=== PATIENT | male | born 1995 | race Two or more races ===

== ENCOUNTER 2018-10-28 11:24 | Emergency (ER) | payer MEDICAID ==
[~2018-10-28] VITALS: Ht 182.9 cm; Wt 93.0 kg
[2018-10-28 12:30] LABS: ALBUMIN 3.6 g/dL (3.4-5.0); ANION GAP 6 mmol/L (5-15); CALCIUM 9.4 mg/dL (8.5-10.1); CHLORIDE 108 mmol/L (98-107); CREATININE 1.09 mg/dL (0.7-1.3)
[2018-10-28] MEDS ORDERED: PHENYTOIN SODIUM 600 MG in SODIUM CHLORIDE 0.9% 100 ML IVPB ONE (12:30)
--- NOTE | 2018-10-28 12:44 | NUR ---
A04 IN BED RESTING WITH FRIEND
[2018-10-28] MEDS ORDERED: FILTER 0.22 MICRON IV ONE (13:00)
--- NOTE | 2018-10-28 13:59 | NUR ---
AFTER THE START OF IV MEDS NOTED INFITRATION ABOVE IV SITE IV STOPPED WARM COMPRESSES APPLIED AND LIMB ELEVATED IV RESTARTED IN THE OTHER LIMB AND THE INFUSSION RESTARTED PHARM CALLED [facility] AND THEY REPORT WARM COMPRESSES AND ELEVATE
[2018-10-28 14:34] VITALS: BP 130/74
== END 2018-10-28 14:42 | disposition home or self-care (01) ==
LOC: ED 13:07
DX: G40.319 Generalized idiopathic epilepsy and epileptic syndromes, intractable, without status epilepticus (principal)
CPT/HCPCS: 36415; 80048; 82040; 96365; 99283; J1165